=== PATIENT | female | born 1985 | race Caucasian/White ===

== ENCOUNTER → 2025-02-23 | Outpatient (CLI) | payer OTHER, SELFPAY ==
--- NOTE | 2025-02-23 13:36 | NEURO ---
NCS and/or EMG Patient Report Ordering Doctor: Talat Smith DATE OF SERVICE: 02/23/25 Clinical Summary: 39 year old female patient with symptoms of numbness and tingling in both hands but much more pronounced on the right. Nerve Conduction Studies Summary: Nerve conduction studies of the bilateral upper extremities were performed. The right median SNAP was absent. The right median-APB CMAP distal latency was prolonged. Needle Examination Summary: Needle examination of select muscles of the bilateral upper extremities was normal. Impression: This is an abnormal study. 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 Multi Select Codes Neurology Neurology Interp Codes: 81422-59 Musc test done w/n test comp (interp) (2) and 77940-34 Nrv cndj test 11-12 studies (interp)
== END | disposition home or self-care (01) ==
PROVIDERS: PCP Nurse Practitioner Family
DX: R20.0 Anesthesia of skin (principal); R20.2 Paresthesia of skin; R53.1 Weakness; M99.01 Segmental and somatic dysfunction of cervical region; M99.02 Segmental and somatic dysfunction of thoracic region
CPT/HCPCS: 95886; 95913